=== PATIENT | female | born 1950 | race Hispanic/Latino ===

== ENCOUNTER 2017-05-03 09:55 | Outpatient (CLI) | payer MEDICARE ==
--- NOTE | 2017-05-03 13:15 | Ultrasound Report ---
ABDOMINAL ULTRASOUND: 05/03/17 09:55:00 CLINICAL: Abdominal pain. FINDINGS: High-resolution ultrasound demonstrated an enlarged liver with diffuse increased echogenicity. No liver mass. Poor visualization of the hepatic vasculature. Normal inferior vena cava. Multiple calculi are identified within the gallbladder. The gall bladder wall measures 3.0 mm in thickness. No pericholecystic fluid and no gallbladder tenderness. The common bile duct measures 5.3 mm diameter. Normal pancreatic head and proximal body. The distal body and tail the pancreas are obscured by bowel gas. Normal abdominal aorta. A normal spleen measures 11.7cm. Normal kidneys with normal echogenicity and normal non-dilated renal collecting systems and ureters. The right kidney measures 11.5 x 4.5 x 4.5cm. The left kidney measures 11.2 x 4.4 x 5.1cm. No renal mass or calculus. No ascites or mass. IMPRESSION: 1. Moderate hepatic steatosis and mild hepatomegaly. 2. Cholelithiasis but no signs of acute cholecystitis. 3. No evidence of choledocholithiasis. 4. No signs of pancreatitis. However, the distal pancreatic body and pancreatic tail are not imaged.
== END 2017-05-03 09:56 | disposition home or self-care (01) ==
LOC: SPVWC 09:55
DX: K80.20 Calculus of gallbladder without cholecystitis without obstruction (principal); K76.0 Fatty (change of) liver, not elsewhere classified; R16.0 Hepatomegaly, not elsewhere classified
CPT/HCPCS: 76700

== ENCOUNTER 2019-08-28 15:34 | Outpatient (CLI) | payer MEDICARE ==
--- NOTE | 2019-08-29 09:21 | Mammography Report ---
DIGITAL SCREENING MAMMOGRAM WITH CAD, 08/28/2019 INDICATION: Routine screening mammography. History of bilateral reduction mammoplasty. TECHNIQUE: Digital bilateral 2D mammography was obtained in the craniocaudal and mediolateral obliq ue projections. This examination was interpreted with the benefit of Computer-Aided Detection analysi s. COMPARISON: None available. However, she indicated that she had a prior mammogram at [facility]. FINDINGS: Breast Density: The breasts are almost entirely fatty. There is no evidence of dominant mass, suspicious calcifications or architectural distortion in eithe r breast. A few scattered bilateral benign calcifications. IMPRESSION: No mammographic evidence of malignancy. Follow up recommendation: Routine yearly BI-RADS Category 2: Benign. A "normal" or negative report should not discourage follow up or biopsy of a clinically significant f inding. A written summary of these findings will be mailed to the patient. The patient will be entered into a mammography reporting system which will generate a reminder letter for the patient's next appointmen t at the appropriate interval. The [employer] recommends yearly mammograms starting at age 40 and continuing as l raquel as a woman is in good health. Breast MRI is recommended for women with an approximate 20-25% or greater lifetime risk of breast cancer, including women with a strong family history of breast or ova clark cancer or who have been treated for Hodgkin's disease. Signer Name: Cullen Leon MD Signed: 08/29/2019 9:17 AM Workstation Name: [id number]
== END 2019-08-28 15:35 | disposition home or self-care (01) ==
LOC: SPVWC 15:34
PROVIDERS: ATTEND Physician Assistant
DX: Z12.31 Encounter for screening mammogram for malignant neoplasm of breast (principal)
CPT/HCPCS: 77067

== ENCOUNTER 2020-09-09 11:28 | Outpatient (CLI) | payer MEDICARE ==
--- NOTE | 2020-09-09 16:07 | Mammography Report ---
DIGITAL SCREENING MAMMOGRAM WITH CAD, 09/09/2020 CLINICAL INFORMATION / INDICATION: Routine screening mammography. TECHNIQUE: Digital bilateral 2D mammography was obtained in the craniocaudal and mediolateral obliqu e projections. This examination was interpreted with the benefit of Computer-Aided Detection analysis . COMPARISON: 08/28/2019 FINDINGS: Breast Density: The breasts are almost entirely fatty. No dominant mass, suspicious calcifications, or architectural distortion in either breast. Bilateral reduction mammoplasty changes are noted. Benign calcifications are seen in the inferior breasts bilat erally. Overall, no significant interval change. IMPRESSION: No mammographic evidence of malignancy. Follow up recommendation: Routine yearly BI-RADS Category 2: Benign. A "normal" or negative report should not discourage follow up or biopsy of a clinically significant f inding. A written summary of these findings will be mailed to the patient. The patient will be entered into a mammography reporting system which will generate a reminder letter for the patient's next appointmen t at the appropriate interval. The [employer] recommends yearly mammograms starting at age 40 and continuing as l raquel as a woman is in good health. Breast MRI is recommended for women with an approximate 20-25% or greater lifetime risk of breast cancer, including women with a strong family history of breast or ova clark cancer or who have been treated for Hodgkin's disease. Signer Name: Leela Case MD Signed: 09/09/2020 4:02 PM Workstation Name: [id number]
== END 2020-09-09 11:29 | disposition home or self-care (01) ==
LOC: SPVWC 11:28
PROVIDERS: ATTEND Physician Assistant
DX: Z12.31 Encounter for screening mammogram for malignant neoplasm of breast (principal)
CPT/HCPCS: 77067